=== PATIENT | female | born 1975 | race Caucasian/White ===

== ENCOUNTER 2017-04-17 18:43 | Emergency (ER) | payer MEDICAID, OTHER ==
[2017-04-17] MEDS ORDERED: traMADol HCl 50 MG TAB ONE ×2 (19:14→19:15)
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
== END 2017-04-17 20:10 | disposition home or self-care (01) ==
LOC: NAV ERS 18:43
DX: S16.1XXA Strain of muscle, fascia and tendon at neck level, initial encounter (principal); E66.9 Obesity, unspecified; F31.9 Bipolar disorder, unspecified; V43.52XA Car driver injured in collision with other type car in traffic accident, initial encounter
CPT/HCPCS: 70450; 72125

== ENCOUNTER 2017-06-06 00:07 | Emergency (ER) | payer MEDICAID, OTHER ==
[2017-06-06] MEDS ORDERED: Acetaminophen 500 MG TAB ONE (00:45)
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
== END 2017-06-06 01:15 | disposition home or self-care (01) ==
LOC: NAV ERS 00:07
DX: S56.911A Strain of unspecified muscles, fascia and tendons at forearm level, right arm, initial encounter (principal); E66.9 Obesity, unspecified; V89.2XXA Person injured in unspecified motor-vehicle accident, traffic, initial encounter